=== PATIENT | male | born 1960 | race Caucasian/White ===

== ENCOUNTER 2025-08-19 07:25 | Outpatient (CLI) | payer MEDICARE ==
[2025-08-19] VITALS (8 sets, daily range): BP systolic 123–158; BP diastolic 69–84; PULSE 64–93; RESP 14–16; O2SAT 96–98
[~2025-08-19] VITALS: Ht 172.7 cm; Wt 89.4 kg
[2025-08-19] MEDS ORDERED: BISOPROLOL (08:29)
[2025-08-19] MEDS: regadenoson 0.4mg/5ml syringe IV ONE (09:12)
--- NOTE | 2025-08-19 13:11 | RADIOLOGY REPORT ---
Reason for study/Clinical History: PRE OP;SHORTNESS OF BREATH;DYSPNEA Comparison Study: None Myocardial Perfusion Study with SPECT Technique: The patient received an intravenous injection of 8.7 mCi of technetium-99m Sestamibi while at rest. After a short delay, SPECT tomographic images of the heart were obtained. The patient then went to the stress lab where they received an intravenous Lexiscan utilizing standard protocol. 35 mCi of technetium-99m Sestamibi was injected intravenously immediately after the start of the infusion. Gated SPECT tomographic images of the heart were acquired and processed. Findings: Rotating planar images show no significant attenuation artifact. The left ventricular size is within normal limits. Stress tomographic images demonstrate normal perfusion. Resting tomographic images demonstrate a similar pattern. Gated portion of the study shows normal wall motion and myocardial thickening. The left ventricular ejection fraction is 65 %. (normal greater than 50%) Impression: Normal left ventricular size, wall motion, and function, without evidence of infarction or of myocardium at ischemic risk. The left ventricular ejection fraction is 65%.
== END 2025-08-19 23:59 | disposition home or self-care (01) ==
LOC: NM 07:25
PROVIDERS: ATTEND Internal Medicine Cardiovascular Disease
DX: Z01.810 Encounter for preprocedural cardiovascular examination (principal); R06.02 Shortness of breath; R06.00 Dyspnea, unspecified
CPT/HCPCS: 78452; 93017; A9500; J2785